=== PATIENT | male | born 2000 | race Caucasian/White ===

== ENCOUNTER 2021-04-04 21:26 | Emergency (ER) | payer OTHER ==
[~2021-04-04] VITALS: Ht 170.2 cm; Wt 104.5 kg
[2021-04-04 21:36] VITALS: TEMP 98.8
[2021-04-04 23:11] LABS: COLLECTION METHOD CLEAN CATCH
[2021-04-04 23:17] LABS: PH 6 (5-8); SQUAMOUS EPITHELIAL None Seen /hpf; URINE APPEARANCE Clear; URINE BACTERIA None Seen /hpf; URINE BILIRUBIN Negative (NEGATIVE); URINE BLOOD Negative (NEGATIVE); URINE COLOR Yellow; URINE GLUCOSE Negative (NEGATIVE); URINE KETONE Trace (NEGATIVE); URINE LEUKOCYTE ESTERASE Negative (NEGATIVE); URINE NITRATE Negative (NEGATIVE); URINE PROTEIN(semi-quant) Negative (NEGATIVE); URINE RBC None Seen /hpf; URINE UROBILINOGEN >=4.0 mg/dL (NEGATIVE)
[2021-04-05] MEDS ORDERED: DOXYCYCLINE 10100 MG PO (00:14)
[2021-04-05 00:23] VITALS: BP 144/78; PULSE 68
== END 2021-04-05 00:23 | disposition home or self-care (01) ==
LOC: COL.ER 21:26
PROVIDERS: Nurse Practitioner
DX: N50.811 Right testicular pain (principal)